=== PATIENT | male | born 1985 ===

== ENCOUNTER 2019-04-03 12:41 | Emergency (ER) | payer BC ==
--- NOTE | 2019-04-03 13:24 | UC ---
UC General HPI - HPI Summary HPI Summary: 33-year-old male comes in with chief complaint of exposure to 2 a person with lice. The patient was diagnosed 3 days ago and has been treated. Patient did not have close contact with the patient. No itching feels well otherwise. - History of Current Complaint Chief Complaint: UCGeneralIllness Stated Complaint: LICE Time Seen by Provider: 04/03/19 13:10 Pain Intensity: 0 - Allergy/Home Medications Allergies/Adverse Reactions: Allergies Allergy/AdvReac Type Severity Reaction Status Date / Time Sulfa (Sulfonamide Allergy unk Verified 04/03/19 12:49 Antibiotics) Home Medications: Home Medications NK [No Home Medications Reported] 04/03/19 [History Confirmed 04/03/19] PMH/Surg Hx/FS Hx/Imm Hx Previously Healthy: Yes - Surgical History Surgical History: None - Family History Known Family History: Positive: Non-Contributory - Social History Alcohol Use: Weekly Substance Use Type: None Smoking Status (MU): Never Smoked Tobacco Review of Systems All Other Systems Reviewed And Are Negative: Yes Constitutional: Positive: Negative Skin: Positive: Other - SEE HPI Eyes: Positive: Negative ENT: Positive: Negative Respiratory: Positive: Negative Cardiovascular: Positive: Negative Gastrointestinal: Positive: Negative Motor: Positive: Negative Neurovascular: Positive: Negative Neurological: Positive: Negative Psychological: Positive: Negative Is Patient Immunocompromised?: No Physical Exam Triage Information Reviewed: Yes Appearance: Well-Appearing, No Pain Distress, Well-Nourished Vital Signs: Initial Vital Signs Temp 97.1 F 04/03/19 12:47 Pulse 72 04/03/19 12:47 Resp 17 04/03/19 12:47 BP 150/100 04/03/19 12:47 Pulse Ox 100 04/03/19 12:47 Vital Signs Reviewed: Yes Eye Exam: Normal Eyes: Positive: Conjunctiva Clear ENT: Positive: Other - I did not see any evidence of lice in the patient's scalp hair or romero.. Negative: Muffled voice, Hoarse voice Neck: Positive: Supple Respiratory: Positive: No respiratory distress Musculoskeletal: Positive: Strength Intact, ROM Intact Neurological: Positive: Alert Psychological: Positive: Age Appropriate Behavior Skin Exam: Normal Course/Dx - Diagnoses Provider Diagnosis: Exposure to head lice Discharge ED - Sign-Out/Discharge Documenting (check all that apply): Patient Departure All imaging exams completed and their final reports reviewed: No Studies - Discharge Plan Condition: Stable Disposition: HOME Patient Education Materials: Body Lice (ED) Referrals: [facility] [Outside] Additional Instructions: FOLLOW UP WITH YOUR DOCTOR IF NOT COMPLETELY IMPROVED. CONSIDER AN OVER THE COUNTER TREATMENT FOR LICE IF YOU FIND ANY EVIDENCE OF LICE. GET RECHECKED SOONER IF YOUR CONDITION WORSENS OR ANY QUESTIONS OR CONCERNS. - Billing Disposition and Condition Condition: STABLE Disposition: Home
== END 2019-04-03 13:32 | disposition home or self-care (01) ==
LOC: UCEAST 12:41
DX: Z20.7 Contact with and (suspected) exposure to pediculosis, acariasis and other infestations (principal); Z88.2 Allergy status to sulfonamides
CPT/HCPCS: 99201; G0463